=== PATIENT | female | born 1985 | race Caucasian/White ===

== ENCOUNTER 2019-09-11 11:04 | Emergency (ER) | payer MEDICARE, SELFPAY ==
[2019-09-11 11:09] VITALS: BP 118/71; PULSE 98; RESP 24; TEMP 37.4; O2SAT 97; BMI 24.3
--- NOTE | 2019-09-11 13:49 | PC.NURSE ---
Patient to treatment room
--- NOTE | 2019-09-11 14:01 | ED_ITS ---
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 States he is been sick as well. Onset (ago): day(s) Location: chest Severity: mild Associated symptoms: Reports cough; Deny chest pain, dyspnea, malaise, nausea, rash or vomiting Review of Systems Const: Denies: fever, chills, body aches, change in appetite, fatigue or malaise ENMT: Denies: throat pain, ear pain, nasal discharge or nasal congestion Card: Denies: chest pain, edema, shortness of breath on exertion or shortness of breath when lying down Resp: Denies: shortness of breath, productive cough or non-productive cough GI: Denies: abdominal pain, nausea, vomiting, vomiting blood, coffee grounds in vomit, diarrhea, constipation, bloating, blood in stool or black tarry stool : Denies: flank pain, difficulty urinating, painful urination, urinary frequency or urinary urgency Skin/Breast: Denies: rash or itching PFSH ED PFSH: Statuses (acute, chronic, etc) shown below reflect problem list status as previously entered and may not be historically accurate Social History Smoking and tobacco status: never smoked Female Reproductive History: Date of last menstrual period: 08/28/19 Physical Exam Const: COMMON NORMALS: no apparent distress GENERAL APPEARANCE: cooperative and comfortable ORIENTATION/CONSCIOUSNESS: Yes awake, Yes oriented to person, Yes oriented to place and Yes oriented to time HENMT: COMMON NORMALS: normocephalic, head/scalp atraumatic, hearing grossly normal bilaterally, external ears normal, EAC's normal, TM's normal bilaterally, moist oral mucous membranes and oropharynx normal HEAD & SCALP: normocephalic and atraumatic NOSE: nasal discharge EXTERNAL EAR: Yes external ears normal EXTERNAL AUDITORY CANAL: EAC's normal TYMPANIC MEMBRANE: TM's normal bilaterally Eye: COMMON NORMALS: PERRL, EOMs intact bilaterally, conjunctivae normal and no scleral icterus CONJUNCTIVA: Yes conjunctivae normal PUPIL: Yes PERRL Neck/C-Spine: COMMON NORMALS: full ROM, no lymphadenopathy, supple and no JVD Lymph: LYMPHATIC: no lymphadenopathy noted and no lymphedema noted Resp: COMMON NORMALS: normal respiratory effort, no retractions, no use of accessory muscles and clear to auscultation bilaterally AUSCULTATION: clear to auscultation bilaterally Cardio: COMMON NORMALS: no JVD, regular rate, regular rhythm and no murmurs RATE: regular rate RHYTHM: regular rhythm GI: COMMON NORMALS: soft to palpation and no hepatosplenomegaly AUSCULTATION: Yes normoactive bowel sounds PALPATION: Yes soft, No tender, No guarding and Yes no hepatosplenomegaly Extremity: COMMON NORMALS: normal to inspection, normal capillary refill, no clubbing, cyanosis or edema, no calf tenderness and no pedal edema Neuro: SENSORIUM/ORIENTATION: Yes oriented to person, Yes oriented to place and Yes oriented to time Skin: COMMON NORMALS: no rashes or lesions noted GENERAL SKIN EXAM: no rashes or lesions noted Course ED course: . Outpatients discharge summary had planned to go and talk to her however I was called to attend to another issue by the time I got back to her room she ready been discharged we called and left her message so I can discuss her results with her particular in relation to her concern about coronavirus. Vital Signs: Vital signs: Vital Signs Temperature 99.3 F 09/11/19 11:09 Pulse Rate 75 09/11/19 15:34 Respiratory Rate 14 09/11/19 15:34 Blood Pressure 99/65 09/11/19 15:34 Pulse Oximetry 97 09/11/19 15:34 [facility] - General Adult Lab Data: Labs: Lab Results 09/11/19 09/11/19 Range/Units 14:30 14:30 WBC 3.3 L (4.0-10.0) 10^3/ uL RBC 4.29 (4.1-5.3) 10^6/u L Hgb 12.4 (11.5-15.3) g/dL Hct 40.0 (37.0-47.0) % MCV 93.2 (81-99) fL MCH 28.9 (28.0-34.0) pg MCHC 31.0 (30.0-36.0) g/dL RDW 12.7 (12.1-15.1) % Plt Count 255 (130-400) 10^3/c mm MPV 10.9 H (7.4-10.4) fL Neut % (Auto) 68.2 % Lymph % (Auto) 14.8 % [place] % (Auto) 16.1 % Eos % (Auto) 0.0 % Baso % (Auto) 0.6 % Neut # (Auto) 2.3 (1.8-7.7) 10^3/u L Lymph # (Auto) 0.5 L (0.8-4.8) 10^3/u L [place] # (Auto) 0.5 (0.2-0.9) 10^3/u L Eos # (Auto) 0.0 (0.0-0.8) 10^3/u L Baso # (Auto) 0.0 (0.0-0.1) 10^3/u L Nucleated RBC % (a uto) 0 % Nucleated RBCs # 0.0 /100WBC Sodium 138 (136-145) mmol/L Potassium 3.7 (3.5-5.1) mmol/L Chloride 99 (98-107) mmol/L Carbon Dioxide 27 (22-29) mmol/L Anion Gap 15.7 (5-19) BUN 11 (6-20) mg/dL Creatinine 0.8 (0.5-0.9) mg/dL GFR Calculation 83.1 L (90-130) mL/min Glucose 95 (74-109) mg/dL Calcium 9.5 (8.5-10.5) mg/dL Total Bilirubin 0.2 (0.15-1.2) mg/dL AST 16 (0-32) U/L ALT 16 (0-33) U/L Alkaline Phosphata se 68 (35-105) IU/L Total Protein 7.3 (6.6-8.7) g/dL Albumin 4.5 (3.5-5.2) g/dL Globulin 2.8 (1.3-4.6) g/dL Discharge Plan Discharge Patient Disposition: Home, Self-Care Clinical Impression: Upper respiratory infection, viral Condition: Stable Prescriptions: No Action ibuprofen 800 mg tablet 800 mg PO Q6H PRN (Reason: Pain) RF: 0 hydrocodone-acetaminophen 10-325 mg tablet 1 tab PO Q4H PRN (Reason: Pain) RF: 0 Discharge Orders: Discharge Order (Routine); Ordered 09/11/19 Ordered By: Clint Presley Referrals: Angelina Alvarez DO [Primary Care Provider] - Discharge Diet: Usual diet Discharge Activity: Resume usual activity Activity Restrictions/Additional Instructions: [id number] cough cold medications as needed Discharge Date/Time: 09/11/19 15:35 Coding Level of Care Code ED Registered Travel Nurse for Anna Brown
--- NOTE | 2019-09-11 14:08 | XRR_ITS ---
PROCEDURE INFORMATION: Exam: XR Chest, 1 View Exam date and time: 09/11/2019 2:30 PM Age: 34 years old Clinical indication: Cough TECHNIQUE: Imaging protocol: XR of the chest Views: Frontal portable upright view of the chest. COMPARISON: No relevant prior studies available. FINDINGS: Tubes, catheters and devices: EKG leads are present overlying the chest. Lungs: The lungs are clear bilaterally. The pulmonary vasculature is normal. Pleural space: No pleural effusion. No pneumothorax. Heart/Mediastinum: The heart is normal in size and contour. Bones/joints: Partially imaged left thoracic and lumbar junction spinal orthopedic hardware. XR/XR chest 1V portable [id number] IMPRESSION: No acute cardiopulmonary abnormality identified.
[2019-09-11 14:42] LABS: Basophils % 0.6 %; Hemoglobin 12.4 g/dL (11.5-15.3); Lymphocytes # 0.5 10^3/uL (0.8-4.8); Lymphocytes % 14.8 %; Mean Corpuscular Hemoglobin 28.9 pg (28.0-34.0); Mean Corpuscular Volume 93.2 fL (81-99); Mean Platelet Volume 10.9 fL (7.4-10.4); Monocytes # 0.5 10^3/uL (0.2-0.9); Monocytes % 16.1 %; Neutrophils # 2.3 10^3/uL (1.8-7.7); Neutrophils % 68.2 %; Nucleated Red Blood Cells % 0 %; Platelet Count 255 10^3/cmm (130-400); Red Blood Count 4.29 10^6/uL (4.1-5.3); Red Cell Distribution Width 12.7 % (12.1-15.1); White Blood Count 3.3 10^3/uL (4.0-10.0)
[2019-09-11 15:08] LABS: Alanine Aminotransferase 16 U/L (0-33); Albumin Level 4.5 g/dL (3.5-5.2); Alkaline Phosphatase 68 IU/L (35-105); Anion Gap 15.7 (5-19); Aspartate Amino Transferase 16 U/L (0-32); Blood Urea Nitrogen 11 mg/dL (6-20); Calcium 9.5 mg/dL (8.5-10.5); Carbon Dioxide 27 mmol/L (22-29); Chloride 99 mmol/L (98-107); Globulin 2.8 g/dL (1.3-4.6); Glomerular Filtration Rate 83.1 mL/min (90-130); Glucose 95 mg/dL (74-109); Potassium 3.7 mmol/L (3.5-5.1); Sodium 138 mmol/L (136-145); Total Bilirubin 0.2 mg/dL (0.15-1.2); Total Protein 7.3 g/dL (6.6-8.7)
[2019-09-11 15:34] VITALS: BP 99/65; PULSE 75; RESP 14; O2SAT 97
== END 2019-09-11 15:35 | disposition home or self-care (01) ==
PROVIDERS: Emergency Provider Family Medicine; Family Provider Family Medicine; PCP Family Medicine
DX: J06.9 Acute upper respiratory infection, unspecified (principal)
CPT/HCPCS: 36415; 71045; 80053; 85025; 99281

== ENCOUNTER 2020-10-29 13:14 | Outpatient (CLI) | payer MEDICARE, SELFPAY ==
--- NOTE | 2020-10-29 13:27 | XR_ITS ---
WS: [id number] XR lumbar spine 2-3V* [id number] REASON FOR EXAM: CHRONIC MIDLINE LOW BACK PAIN W/BILATERAL SCIATICA FINDINGS: Previous L1 corpectomy, bone graft, fusion with left lateral plate and screw fixation bridging T12-L2 . Normal alignment of the lumbar spine from L2 to S1. The vertebral bodies L2-L5 demonstrate no compression deformity and no focal bone lesion. The disc sp aces from L2 to L5 are relatively well-preserved. There are some narrowing of the L5-S1 disc space. T here are mild degenerative facet joint changes at L5-S1. XR/XR lumbar spine 2-3V* [id number] IMPRESSION: Postoperative changes at the thoracolumbar junction. Mild changes of degenerative spondylosis at L5-S1.
--- NOTE | 2020-10-29 13:27 | XR_ITS ---
WS: [id number] XR hip RT 2-3V wo/w pel* [id number] REASON FOR EXAM: CHRONIC R HIP PAIN FINDINGS: There are 2 threaded surgical appliances within the femoral head. These were present on a CT examinat ion 10/23/2009. 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 The femoral head has a normal configuration. There is mild to moderate loss of right hip joint space. There is spurring of the acetabulum. No focal bone lesion is identified. There are some soft tissue ossifications near the greater trochanter which may relate to previous dolly souleymane. XR/XR hip RT 2-3V wo/w pel* [id number] IMPRESSION: Postoperative right hip joint. There are mild to moderate changes of osteoarthr itis.
== END 2020-10-29 13:15 | disposition home or self-care (01) ==
PROVIDERS: PCP Family Medicine; Visit Provider Family Medicine
DX: G89.29 Other chronic pain (principal); M47.817 Spondylosis without myelopathy or radiculopathy, lumbosacral region; M16.11 Unilateral primary osteoarthritis, right hip
CPT/HCPCS: 72100; 73502

== ENCOUNTER → 2021-07-26 16:53 | Outpatient (BNVA) | payer MEDICARE, SELFPAY | PROVIDERS: PCP Family Medicine; Visit Provider Registered Nurse Neonatal Intensive Care | DX: N39.0 Urinary tract infection, site not specified (principal) | CPT/HCPCS: 81000 ==

== ENCOUNTER → 2022-06-17 11:10 | Outpatient (BNVA) | payer MEDICARE, SELFPAY | PROVIDERS: PCP Family Medicine; Visit Provider Emergency Medicine | DX: N39.0 Urinary tract infection, site not specified (principal); M54.50 Low back pain, unspecified | CPT/HCPCS: 81000; 87077; 87086; 87184 ==

== ENCOUNTER → 2023-12-28 07:50 | Outpatient (BNVA) | payer MEDICARE, SELFPAY | PROVIDERS: PCP Family Medicine; Visit Provider Nurse Practitioner Women's Health | DX: N92.6 Irregular menstruation, unspecified (principal); Z78.9 Other specified health status; Z34.90 Encounter for supervision of normal pregnancy, unspecified, unspecified trimester | CPT/HCPCS: 81025; 84443; 84702; 86850; 86900 ==

== ENCOUNTER 2024-01-03 10:43 | Emergency (ER) | payer MEDICARE, SELFPAY ==
[2024-01-03 10:49] VITALS: BP 112/66; PULSE 53; RESP 16; TEMP 36.6; O2SAT 98
--- NOTE | 2024-01-03 11:59 | US_ITS ---
WS: [id number] EARLY OBSTETRICAL ULTRASOUND (<14 WEEKS). HISTORY: vaginal bleeding, 6 weeks COMPARISON: None available. Transvaginal imaging. Thickened heterogeneous endometrium. There is a central fluid collection which is probably a gestational sac measuring 5.1 x 2.1 x 1.7 cm corresponding to gestation of 8 weeks and 1 day. There is no intrauterine gestation. No yolk sac. No crown-rump length. There is mild heterogen eity within the adjacent uterus which may be a subchorionic hemorrhage. Corpus luteum cyst RIGHT ovary measures 1.7 x 1.8 cm. No free fluid. US/US OB <= 14 weeks fetus [id number] IMPRESSION: 1. Cannot confirm intrauterine gestation. Central fluid collection in the endo metrium could be a gestational sac with a blighted ovum. By sac measurement the gestation is estimated at 8 weeks and 1 day. 2. Without confirming an intrauterine gestation ectopic is not exclu ded.
[2024-01-03 13:12] LABS: Basophils # 0.1 10^3/uL (0.0-0.1); Basophils % 1.1 %; Eosinophils # 0.1 10^3/uL (0.0-0.8); Eosinophils % 1.4 %; Hematocrit 39.7 % (36-47); Lymphocytes # 1.7 10^3/uL (0.8-4.8); Lymphocytes % 21.6 %; Mean Corpuscular Hemoglobin 29.4 pg (27-33); Mean Corpuscular Volume 91.9 fl (85-98); Mean Platelet Volume 11.2 fL (7.4-10.4); Monocytes # 0.6 10^3/uL (0.2-0.9); Neutrophils # 5.39 10^3/uL (1.8-7.7); Neutrophils % 68.6 %; Nucleated Red Blood Cells % 0 %; Platelet Count 280 10^3/cmm (157-399); Red Blood Count 4.32 10^6/uL (3.85-5.65); Red Cell Distribution Width 12.7 % (12.1-15.1); White Blood Count 7.86 10^3/uL (3.29-11.43)
--- NOTE | 2024-01-03 13:40 | ED_ITS ---
Documented by User: MIAH Gray 01/03/24 15:12 HPI - Female Genitourinary 2 General: Chief complaint: Urogenital-Female Stated complaint: dr ayah 6-7 weeks preg, vaginal bleeding Time Seen by Provider: 01/03/24 13:00 Source: patient Mode of arrival: ambulatory Limitations: no limitations History of Present Illness: Patient is a 38-year-old female G3, who presents to the emergency department complaining of vaginal bleeding for the past few days. She states she is 6 to 7 weeks , notes some associated abdominal cramping and lower back pain. Her prior to pregnancies were without complications to either the fetus or herself. She denies any history of blood disorders. She states she has bled through 1 pad, as bleeding began mild but has slowly worsened and now she has been passing clots. She denies any feelings of lightheadedness or that she is going to pass out. No history of ectopic. No recent trauma noted. She has OB ultrasound scheduled for tomorrow. MD elicited complaint: vaginal bleeding Onset (ago): day(s) Severity: mild Quality of pain: cramping Associated symptoms: Deny headache(s) or nausea Related Data: : 3 Para: 2 Total number of abortions (spontaneous and elective): 0 Review of Systems 2 General: Reports: 10 or more systems reviewed and unremarkable except in HPI and below Const: Denies: fever(s), chills, change in appetite, change in weight or diaphoresis ENMT: Denies: throat pain or hoarseness Card: Denies: chest pain, palpitations or lightheadedness Resp: Denies: dyspnea, productive cough or wheezing GI: Reports: GI cramping; Denies: nausea, vomiting, diarrhea, constipation, bloating, change in stool character or hematochezia : Reports: vaginal bleeding; Denies: flank pain, difficulty voiding, dysuria, urinary frequency or urinary urgency Musc: Reports: back pain; Denies: neck pain Skin/Breast: Denies: rash or new lesions Neuro: Denies: headache(s) or dizziness PFSH ED 2 PFSH: Medical History No pertinent past medical history Neghx: htn,dm,thryoid,dvt/pe PCP: Dr. Alvarez Surgical History History of hip surgery (~2004) right fracture- repaired Hx of spinal surgery (~2004) Family History Mother Hypertension Denies family history of Colon cancer Ovarian cancer Prostate cancer Diabetes Heart disease Hyperlipidemia Breast cancer Uterine cancer Thyroid disease Stroke Female Reproductive History: : 3 Physical Exam 2 Const: COMMON NORMALS: no acute distress, average body habitus, patient oriented x3, no limitations, healthy appearing, alert and well nourished G ENERAL APPEARANCE: cooperative and comfortable ORIENTATION/CONSCIOUSNESS: Yes awake HENMT: COMMON NORMALS: normocephalic, atraumatic, hearing grossly normal bilaterally, external ears normal, Normal external nose present, Normal nasal mucous membranes and turbinates present and moist oral mucous membranes HEAD & SCALP: normocephalic and atraumatic NOSE: Normal external nose present and Normal nasal mucous membranes and turbinates present EXTERNAL EAR: Yes external ears normal Eye: COMMON NORMALS: Equal, round and reactive pupils present, EOMs intact bilaterally, conjunctivae normal and normal visual franklin by confrontation C ONJUNCTIVA: Yes conjunctivae normal PUPIL: Yes Equal, round and reactive pupils present Neck/C-Spine: COMMON NORMALS: full ROM, supple, no meningeal signs and no JVD Resp: COMMON NORMALS: normal respiratory effort, No retractions, No use of accessory muscles and clear to auscultation bilaterally AUSCULTATION: clear to auscultation bilaterally, no crackles, no rales, no rhonchi and no wheezes Cardio: COMMON NORMALS: no JVD, regular rate, regular rhythm, S1 normal heart sound present, S2 normal heart sound present, No gallops present (Cardio), No clicks present (Cardio), No murmurs present (Cardio), No rub (Cardio) and Peripheral pulses 2+ throughout RATE: regular rate RHYTHM: regular rhythm HEART SOUNDS: S1 normal heart sound present and S2 normal heart sound present PERIPHERAL PULSES: Peripheral pulses 2+ throughout GI: COMMON NORMALS: Normal to inspection, nondistended, normoactive bowel sounds present, Soft to palpation, non-tender, No hepatosplenomegaly present and no masses AUSCULTATION: Yes normoactive bowel sounds PALPATION: Yes Soft to palpation, No Guarding due to palpation present (GI), No Rigid due to palpation and Yes No hepatosplenomegaly present RECTAL EXAM: deferred : COMMON NORMALS: Yes no CVA tenderness BLADDER/KIDNEY EXAM: Yes no CVA tenderness Back/Pelvis: COMMON NORMALS: no CVA tenderness Extremity: COMMON NORMALS: normal to inspection and full ROM Neuro: COMMON NORMALS: patient oriented x3, moves all extremities, no focal motor deficits and no sensory deficits noted SENSORIUM/ORIENTATION: Yes alert MENINGEAL SIGNS: Yes no meningeal signs Psych: COMMON NORMALS: mental status grossly normal, cooperative and speech normal SPEECH: Yes normal speech Skin: COMMON NORMALS: no rashes or lesions noted GENERAL SKIN EXAM: no rashes or lesions noted Course 2 Vital Signs: Vital signs: Vital Signs Temperature 97.9 F 01/03/24 10:49 Pulse Rate 53 L 01/03/24 10:49 Respiratory Rate 16 01/03/24 10:49 Blood Pressure 112/66 01/03/24 10:49 Pulse Oximetry 98 01/03/24 10:49 MDM - Female Medical Decision Making Patient presents after a few days of vaginal bleeding. She stated her gestational age was approximately 6 weeks. Lab evaluation unremarkable, beta- hCG showed serum quant of 16,000. Ultrasound of the fetus did not confirm an intrauterine gestation, though noted there is central fluid collection that could represent blighted ovum. I spoke to TECHNOLOGY RESOURCE TEACHER, Dr. Gamez, and reported patient's case and current findings. He states that the ultrasound scheduled for tomorrow can be canceled, and he will see her in the office in a couple of days to repeat the beta-hCG. I did speak to the patient in regards to emergent reasons to return such as significant increase in pain, vaginal bleeding, or feeling of passing out. She understands and will follow-up with OB as discussed. Lab Data 01/03/24 12:51 01/03/24 12:51 Radiology Impressions Ultrasound 01/03/24 11:59 IMPRESSION: 1. Cannot confirm intrauterine gestation. Central fluid collection in the endometrium could be a gestational sac with a blighted ovum. By sac measurement the gestation is estimated at 8 weeks and 1 day. 2. Without confirming an intrauterine gestation ectopic is not excluded. Laboratory Results WBC 7.86 10^3/uL (3.29-11.43) 05/20/24 12:51 RBC 4.32 10^6/uL (3.85-5.65) 01/03/24 12:51 Hgb 12.70 g/dL (11.27-16.99) 01/03/24 12:51 Hct 39.7 % (36-47) 01/03/24 12:51 MCV 91.9 fl (85-98) 01/03/24 12:51 MCH 29.4 pg (27-33) 01/03/24 12:51 MCHC 32.0 g/dL (30-55) 01/03/24 12:51 RDW 12.7 % (12.1-15.1) 01/03/24 12:51 Plt Count 280 10^3/cmm (157-399) 01/03/24 12:51 MPV 11.2 fL (7.4-10.4) H 01/03/24 12:51 Neut % (Auto) 68.6 % 01/03/24 12:51 Lymph % (Auto) 21.6 % 01/03/24 12:51 [place] % (Auto) 7.0 % 01/03/24 12:51 Eos % (Auto) 1.4 % 01/03/24 12:51 Baso % (Auto) 1.1 % 01/03/24 12:51 Neut # (Auto) 5.39 10^3/uL (1.8-7.7) 01/03/24 12:51 Lymph # (Auto) 1.7 10^3/uL (0.8-4.8) 01/03/24 12:51 [place] # (Auto) 0.6 10^3/uL (0.2-0.9) 01/03/24 12:51 Eos # (Auto) 0.1 10^3/uL (0.0-0.8) 01/03/24 12:51 Baso # (Auto) 0.1 10^3/uL (0.0-0.1) 01/03/24 12:51 Nucleated RBC % (auto) 0 % 01/03/24 12:51 Nucleated RBCs # 0.0 /100WBC 01/03/24 12:51 Sodium 137 mmol/L (136-145) 01/03/24 12:51 Potassium 4.2 mmol/L (3.5-5.1) 01/03/24 12:51 Chloride 102 mmol/L (98-107) 01/03/24 12:51 Carbon Dioxide 25 mmol/L (22-29) 01/03/24 12:51 Anion Gap 14.2 (5-19) 01/03/24 12:51 BUN 10 mg/dL (6-20) 01/03/24 12:51 Creatinine 0.6 mg/dL (0.5-0.9) 01/03/24 12:51 GFR Calculation 113.1 mL/min (90-130) 01/03/24 12:51 Glucose 90 mg/dL (65-115) 01/03/24 12:51 Calculated Osmolality 283 mOsm/kg (285-295) L 01/03/24 12:51 Calcium 9.1 mg/dL (8.5-10.5) 01/03/24 12:51 Total Bilirubin 0.3 mg/dL (0.15-1.2) 01/03/24 12:51 AST 14 U/L (0-32) 01/03/24 12:51 ALT 14 U/L (0-33) 01/03/24 12:51 Alkaline Phosphatase 67 U/L (35-105) 01/03/24 12:51 Total Protein 6.9 g/dL (6.6-8.7) 01/03/24 12:51 Albumin 3.8 g/dL (3.5-5.2) 01/03/24 12:51 Globulin 3.1 g/dL (1.3-4.6) 01/03/24 12:51 Ser , Semi-Qnt 19171.00 mIU/mL 01/03/24 12:51 Blood Type O Positive 01/03/24 12:51 Rho(D) Type Rh positive 01/03/24 12:51 All radiology interpretation(s) finalized by discharge Discharge Plan Discharge Patient Disposition: Home Clinical Impression: Vaginal bleeding during Condition: Stable Prescriptions: No Action DHA 200 mg capsule 200 mg PO DAILY hydrocodone-acetaminophen 10-325 mg tablet 1 tab PO Q4H PRN (Reason: Pain, Moderate) Discharge Orders: Discharge ED (Routine); Ordered 01/03/24 Ordered By: Afshin Thompson Referrals: Angelina Alvarez DO [Primary Care Provider] - Discharge Diet: Usual diet Discharge Activity: Resume usual activity Patient Instructions: (ED) Activity Restrictions/Additional Instructions: Follow-up with OB as discussed. Monitor for any significant worsening in pain, vaginal bleeding, or feelings of passing out and return for reevaluation. Coding Level of Care Code ED Interviewing Clerk for Chg Fwd Documented by User: Clint Presley DO 01/03/24 18:06 HPI - Female Genitourinary 2 General: Chief complaint: Urogenital-Female Stated complaint: dr ayah 6-7 weeks preg, vaginal bleeding Time Seen by Provider: 01/03/24 13:00 PFSH ED 2 PFSH: Medical History No pertinent past medical history Neghx: htn,dm,thryoid,dvt/pe PCP: Dr. Alvarez Surgical History History of hip surgery (~2004) right fracture- repaired Hx of spinal surgery (~2004) Family History Mother Hypertension Denies family history of Colon cancer Ovarian cancer Prostate cancer Diabetes Heart disease Hyperlipidemia Breast cancer Uterine cancer Thyroid disease Stroke Course 2 Vital Signs: Vital signs: Vital Signs Temperature 97.9 F 01/03/24 10:49 Pulse Rate 53 L 01/03/24 10:49 Respiratory Rate 16 01/03/24 10:49 Blood Pressure 112/66 01/03/24 10:49 Pulse Oximetry 98 01/03/24 10:49 MDM - Female Medical Decision Making Patient presents after a few days of vaginal bleeding. She stated her gestational age was approximately 6 weeks. Lab evaluation unremarkable, beta- hCG showed serum quant of 16,000. Ultrasound of the fetus did not confirm an intrauterine gestation, though noted there is central fluid collection that could represent blighted ovum. I spoke to TECHNOLOGY RESOURCE TEACHER, Dr. Gamez, and reported patient's case and current findings. He states that the ultrasound scheduled for tomorrow can be canceled, and he will see her in the office in a couple of days to repeat the beta-hCG. I did speak to the patient in regards to emergent reasons to return such as significant increase in pain, vaginal bleeding, or feeling of passing out. She understands and will follow-up with OB as discussed. Chart reviewed Lab Data 01/03/24 12:51 01/03/24 12:51 Radiology Impressions Ultrasound 01/03/24 11:59 IMPRESSION: 1. Cannot confirm intrauterine gestation. Central fluid collection in the endometrium could be a gestational sac with a blighted ovum. By sac measurement the gestation is estimated at 8 weeks and 1 day. 2. Without confirming an intrauterine gestation ectopic is not excluded. Laboratory Results WBC 7.86 10^3/uL (3.29-11.43) 01/03/24 12:51 RBC 4.32 10^6/uL (3.85-5.65) 01/03/24 12:51 Hgb 12.70 g/dL (11.27-16.99) 01/03/24 12:51 Hct 39.7 % (36-47) 01/03/24 12:51 MCV 91.9 fl (85-98) 01/03/24 12:51 MCH 29.4 pg (27-33) 01/03/24 12:51 MCHC 32.0 g/dL (30-55) 01/03/24 12:51 RDW 12.7 % (12.1-15.1) 01/03/24 12:51 Plt Count 280 10^3/cmm (157-399) 01/03/24 12:51 MPV 11.2 fL (7.4-10.4) H 01/03/24 12:51 Neut % (Auto) 68.6 % 01/03/24 12:51 Lymph % (Auto) 21.6 % 01/03/24 12:51 [place] % (Auto) 7.0 % 01/03/24 12:51 Eos % (Auto) 1.4 % 01/03/24 12:51 Baso % (Auto) 1.1 % 01/03/24 12:51 Neut # (Auto) 5.39 10^3/uL (1.8-7.7) 01/03/24 12:51 Lymph # (Auto) 1.7 10^3/uL (0.8-4.8) 01/03/24 12:51 [place] # (Auto) 0.6 10^3/uL (0.2-0.9) 01/03/24 12:51 Eos # (Auto) 0.1 10^3/uL (0.0-0.8) 01/03/24 12:51 Baso # (Auto) 0.1 10^3/uL (0.0-0.1) 01/03/24 12:51 Nucleated RBC % (auto) 0 % 01/03/24 12:51 Nucleated RBCs # 0.0 /100WBC 01/03/24 12:51 Sodium 137 mmol/L (136-145) 01/03/24 12:51 Potassium 4.2 mmol/L (3.5-5.1) 01/03/24 12:51 Chloride 102 mmol/L (98-107) 01/03/24 12:51 Carbon Dioxide 25 mmol/L (22-29) 01/03/24 12:51 Anion Gap 14.2 (5-19) 01/03/24 12:51 BUN 10 mg/dL (6-20) 01/03/24 12:51 Creatinine 0.6 mg/dL (0.5-0.9) 01/03/24 12:51 GFR Calculation 113.1 mL/min (90-130) 01/03/24 12:51 Glucose 90 mg/dL (65-115) 01/03/24 12:51 Calculated Osmolality 283 mOsm/kg (285-295) L 01/03/24 12:51 Calcium 9.1 mg/dL (8.5-10.5) 01/03/24 12:51 Total Bilirubin 0.3 mg/dL (0.15-1.2) 01/03/24 12:51 AST 14 U/L (0-32) 01/03/24 12:51 ALT 14 U/L (0-33) 01/03/24 12:51 Alkaline Phosphatase 67 U/L (35-105) 01/03/24 12:51 Total Protein 6.9 g/dL (6.6-8.7) 01/03/24 12:51 Albumin 3.8 g/dL (3.5-5.2) 01/03/24 12:51 Globulin 3.1 g/dL (1.3-4.6) 01/03/24 12:51 Ser , Semi-Qnt 71561.00 mIU/mL 01/03/24 12:51 Blood Type O Positive 01/03/24 12:51 Rho(D) Type Rh positive 01/03/24 12:51 Discharge Plan Discharge Patient Disposition: Home Clinical Impression: Vaginal bleeding during Condition: Stable Prescriptions: No Action DHA 200 mg capsule 200 mg PO DAILY hydrocodone-acetaminophen 10-325 mg tablet 1 tab PO Q4H PRN (Reason: Pain, Moderate) Discharge Orders: Discharge ED (Routine); Ordered 01/03/24 Ordered By: Afshin Thompson Referrals: Angelina Alvarez DO [Primary Care Provider] - Discharge Diet: Usual diet Discharge Activity: Resume usual activity Patient Instructions: (ED) Activity Restrictions/Additional Instructions: Follow-up with OB as discussed. Monitor for any significant worsening in pain, vaginal bleeding, or feelings of passing out and return for reevaluation. Coding Level of Care Code ED Interviewing Clerk for Anna Brown
[2024-01-03 13:48] LABS: Alanine Aminotransferase 14 U/L (0-33); Albumin Level 3.8 g/dL (3.5-5.2); Alkaline Phosphatase 67 U/L (35-105); Anion Gap 14.2 (5-19); Aspartate Amino Transferase 14 U/L (0-32); Blood Urea Nitrogen 10 mg/dL (6-20); Calcium 9.1 mg/dL (8.5-10.5); Carbon Dioxide 25 mmol/L (22-29); Chloride 102 mmol/L (98-107); Creatinine Clr Calc Pharmacy 134.1462; Globulin 3.1 g/dL (1.3-4.6); Glomerular Filtration Rate 113.1 mL/min (90-130); Glucose 90 mg/dL (65-115); Osmolality Calculated 283 mOsm/kg (285-295); Potassium 4.2 mmol/L (3.5-5.1); Sodium 137 mmol/L (136-145); Total Bilirubin 0.3 mg/dL (0.15-1.2); Total Protein 6.9 g/dL (6.6-8.7)
== END 2024-01-03 15:35 | disposition home or self-care (01) ==
PROVIDERS: Emergency Medicine; Emergency Provider Physician Assistant; PCP Family Medicine
DX: O20.9 Hemorrhage in early pregnancy, unspecified (principal); Z3A.01 Less than 8 weeks gestation of pregnancy
CPT/HCPCS: 36415; 76801; 80053; 84702; 85025; 86900; 99284

== ENCOUNTER → 2024-01-06 09:18 | Outpatient (BNVA) | payer MEDICARE, SELFPAY | PROVIDERS: PCP Family Medicine; Visit Provider Obstetrics & Gynecology | DX: O46.90 Antepartum hemorrhage, unspecified, unspecified trimester (principal); Z3A.00 Weeks of gestation of pregnancy not specified | CPT/HCPCS: 84702; 85025 ==

== ENCOUNTER → 2024-02-01 10:57 | Outpatient (BNVA) | payer MEDICARE, SELFPAY | PROVIDERS: PCP Family Medicine; Visit Provider Obstetrics & Gynecology | DX: O03.9 Complete or unspecified spontaneous abortion without complication (principal) | CPT/HCPCS: 81025 ==